=== PATIENT | female | born 1955 | race Caucasian/White ===

== ENCOUNTER → 2020-03-25 14:52 | Outpatient (CLI) | payer MEDICARE, OTHER, SELFPAY ==
--- NOTE | 2020-03-25 14:56 | DI.RAD.S_ITS ---
PROCEDURE: XR HAND LT MIN 3V INDICATIONS: L hand 5th metacarpal, L ulnar aspect wrist pain x 1 month TECHNIQUE: 3 views of the hand(s) acquired. COMPARISON: None. FINDINGS: Bones: No fractures or dislocations. Carpal bones are normally aligned. No suspicious bony lesions. Soft tissues: No suspicious soft tissue calcifications. IMPRESSION: No acute trauma found. Note is made of a accessory ossicle at the interspace between the distal left ulna and the pisiform bone. Dictated by: Sumeet Parra M.D. on 03/25/2020 at 15:38 Approved by: Sumeet Parra M.D. on 03/25/2020 at 15:40
--- NOTE | 2020-03-25 14:56 | DI.RAD.S_ITS ---
PROCEDURE: XR WRIST LT MIN 3V INDICATIONS: L hand 5th metacarpal, L ulnar aspect wrist pain x 1 month TECHNIQUE: 4 views of the wrist were acquired. COMPARISON: None. FINDINGS: Bones: No fractures or dislocations. No suspicious bony lesions. Apparent accessory ossicle at the distal margin of the ulna. Scaphoid view: No trauma Soft tissues: No suspicious soft tissue calcifications. IMPRESSION: No trauma found. Accessory ossicle at the interspace between the distal ulna and the pisiform bone. Dictated by: Sumeet Parra M.D. on 03/25/2020 at 15:37 Approved by: Sumeet Parra M.D. on 03/25/2020 at 15:38
== END ==
PROVIDERS: PCP Registered Nurse Diabetes Educator; Referring Provider Registered Nurse Diabetes Educator; Visit Provider Registered Nurse Diabetes Educator
DX: M25.532 Pain in left wrist (principal); M79.642 Pain in left hand
CPT/HCPCS: 73110; 73130

== ENCOUNTER → 2020-03-26 11:23 | Outpatient (CLI) | payer MEDICARE, OTHER, SELFPAY ==
[2020-03-26 12:53] LABS: Add Manual Diff / Slide Review NO; Basophils Absolute Auto 100 /uL (0-100); Basophils Percent Auto 1.2 % (0-2); Eosinophils Absolute Auto 100 /uL (0-450); Eosinophils Percent Auto 1.5 % (2-4); Hematocrit 41.6 % (36-46); Hemoglobin 13.9 g/dL (12.0-16.0); Lymphocytes Absolute Auto 1700 /uL (1100-4500); Lymphocytes Percent Auto 36.2 % (25-40); Mean Corpuscular HGB Conc 33.5 % (30-36); Mean Corpuscular Hemoglobin 30.5 PG (26-34); Mean Corpuscular Volume 91.1 fL (80-100); Monocytes Absolute Auto 600 /uL (0-900); Monocytes Percent Auto 12.1 % (3-14); Neutrophils Absolute Auto 2300 /uL (1500-7000); Platelet Count 279 X10^3/uL (150-400); Red Blood Cell Count 4.57 X10^6/uL (4.0-5.2); Red Cell Distribution Width 13.4 % (11.6-14.8); White Blood Cell Count 4.8 X10^3/uL (4.5-11.0)
[2020-03-26 13:02] LABS: Hemoglobin A1C% w Est Avg Glu 5.8 % (4.0-6.0)
[2020-03-26 13:23] LABS: Alanine Aminotransferase 22 IU/L (<35); Albumin 4.6 g/dL (3.5-5.0); Albumin Globulin Ratio 1.5 (1.0-2.8); Alkaline Phosphatase 89 U/L (38-126); Aspartate Aminotransferase 33 IU/L (14-36); BUN Creatinine Ratio 16.5 (6-22); Bilirubin Total 0.6 mg/dL (0.2-1.3); Blood Urea Nitrogen 13 mg/dL (7-17); Carbon Dioxide 30 mmol/L (22-32); Chloride 101 mmol/L (98-107); Cholesterol 248 mg/dL (140-199); Estimated Glomerular Filt Rate > 60.0 mL/min (>60); Globulin 3.1 g/dL (1.7-4.1); Glucose 93 mg/dL (80-110); HDL Cholesterol 61 mg/dL (40-60); HEMOLYSIS < 15 (0-50); LDL Cholesterol Calculated 161 mg/dL (<100); Sodium 138 mmol/L (137-145); Total Protein 7.7 g/dL (6.3-8.2); Triglycerides 132 mg/dL (35-150)
[2020-03-26 13:46] LABS: TSH w/ Reflex to FT4 0.46 uIU/mL (0.47-4.68)
[2020-03-26 14:10] LABS: Free T4, Direct Thyroxine 1.12 ng/dL (0.78-2.19)
== END ==
PROVIDERS: PCP Registered Nurse Diabetes Educator; Referring Provider Registered Nurse Diabetes Educator; Visit Provider Registered Nurse Diabetes Educator
DX: E03.9 Hypothyroidism, unspecified (principal); E78.5 Hyperlipidemia, unspecified; R73.9 Hyperglycemia, unspecified
CPT/HCPCS: 36415; 80053; 80061; 83036; 84439; 84443; 85025

== ENCOUNTER → 2020-07-28 17:20 | Outpatient (CLI) | payer MEDICARE, OTHER, SELFPAY ==
--- NOTE | 2020-07-28 17:23 | DI.MG.S_ITS ---
BILATERAL DIGITAL SCREENING MAMMOGRAM 3D/2D WITH CAD: 07/28/2020 CLINICAL: Routine screening. Comparison is made to exams dated: 06/08/2017 mammogram, 06/20/2017 mammogram, 07/03/2018 mammogram, and 07/04/2019 mammogram - outside location. There are scattered fibroglandular elements in both breasts. Current study was also evaluated with a Computer Aided Detection (CAD) system. There are benign vascular calcifications in the right breast. No significant masses, calcifications, or other findings are seen in either breast. There has been no significant interval change. IMPRESSION: BENIGN There is no mammographic evidence of malignancy. A 1 year screening mammogram is recommended. This exam was interpreted at Station ID: [id number]. NOTE: For mammograms, a report in lay terms will be sent to the patient. Approximately 15% of breast malignancies will not be visualized mammographically. In the management of a palpable breast mass, a negative mammogram must not discourage biopsy of a clinically suspicious lesion. Electronically Signed By: Terry carmichael/maritza:07/29/2020 08:05:26 letter sent: Normal Exam ACR BI-RADS Category 2: Benign Finding(s) 3342F
== END ==
PROVIDERS: PCP Registered Nurse Diabetes Educator; Referring Provider Registered Nurse Diabetes Educator; Visit Provider Registered Nurse Diabetes Educator
DX: Z12.31 Encounter for screening mammogram for malignant neoplasm of breast (principal)
CPT/HCPCS: 77063; 77067

== ENCOUNTER → 2020-07-30 11:01 | Outpatient (CLI) | payer MEDICARE, OTHER, SELFPAY ==
[2020-07-30 13:46] LABS: TSH w/ Reflex to FT4 3.78 uIU/mL (0.47-4.68)
== END ==
PROVIDERS: PCP Registered Nurse Diabetes Educator; Referring Provider Registered Nurse Diabetes Educator; Visit Provider Registered Nurse Diabetes Educator
DX: E03.9 Hypothyroidism, unspecified (principal)
CPT/HCPCS: 36415; 84443

== ENCOUNTER → 2020-12-31 12:16 | Outpatient (CLI) | payer MEDICARE, OTHER, SELFPAY ==
--- NOTE | 2020-12-31 12:17 | DI.RAD.S_ITS ---
PROCEDURE: XR KNEE LT 3V INDICATIONS: Left knee pain, atraumatic TECHNIQUE: 3 views of the knee were acquired. COMPARISON: None. FINDINGS: Bones: No fractures or dislocations. No suspicious bony lesions. Mild tricompartmental knee joint degeneration. Soft tissues: Small joint effusion. No suspicious soft tissue calcifications. IMPRESSION: Mild tricompartmental degenerative joint disease and small knee joint effusion. Dictated by: Sarah Aguilar M.D. on 12/31/2020 at 17:22 Approved by: Sarah Aguilar M.D. on 12/31/2020 at 17:23
== END ==
PROVIDERS: PCP Registered Nurse Diabetes Educator; Referring Provider Registered Nurse Diabetes Educator; Visit Provider Registered Nurse Diabetes Educator
DX: M25.562 Pain in left knee (principal); M17.12 Unilateral primary osteoarthritis, left knee; M25.462 Effusion, left knee
CPT/HCPCS: 73562

== ENCOUNTER → 2021-09-08 16:03 | Outpatient (CLI) | payer MEDICARE, OTHER, SELFPAY ==
--- NOTE | 2021-09-08 16:05 | DI.MG.S_ITS ---
BILATERAL DIGITAL SCREENING MAMMOGRAM 3D/2D WITH CAD: 09/08/2021 CLINICAL: Routine screening. Comparison is made to exams dated: 07/28/2020 mammogram - [facility], 07/04/2019 mammogram, and 07/03/2018 mammogram - outside location. There are scattered fibroglandular elements in both breasts. Current study was also evaluated with a Computer Aided Detection (CAD) system. There are benign vascular calcifications in the right breast. No significant masses, calcifications, or other findings are seen in either breast. There has been no significant interval change. IMPRESSION: BENIGN There is no mammographic evidence of malignancy. A 1 year screening mammogram is recommended. This exam was interpreted at Station ID: [id number]. NOTE: For mammograms, a report in lay terms will be sent to the patient. Approximately 15% of breast malignancies will not be visualized mammographically. In the management of a palpable breast mass, a negative mammogram must not discourage biopsy of a clinically suspicious lesion. Electronically Signed By: Renzo Rivas M.D., jr/maritza:09/09/2021 09:22:39 letter sent: Normal Exam ACR BI-RADS Category 2: Benign Finding(s) 3342F
== END ==
PROVIDERS: PCP Registered Nurse Diabetes Educator; Referring Provider Registered Nurse Diabetes Educator; Visit Provider Registered Nurse Diabetes Educator
DX: Z12.31 Encounter for screening mammogram for malignant neoplasm of breast (principal)
CPT/HCPCS: 77063; 77067

== ENCOUNTER → 2021-09-28 13:00 | Outpatient (CLI) | payer MEDICARE, OTHER, SELFPAY ==
[2021-09-28 15:50] LABS: TSH w/ Reflex to FT4 2.55 uIU/mL (0.47-4.68)
== END ==
PROVIDERS: PCP Registered Nurse Diabetes Educator; Referring Provider Registered Nurse Diabetes Educator; Visit Provider Registered Nurse Diabetes Educator
DX: E03.9 Hypothyroidism, unspecified (principal)
CPT/HCPCS: 36415; 84443

== ENCOUNTER → 2021-10-20 10:55 | Outpatient (CLI) | payer MEDICARE, OTHER, SELFPAY | PROVIDERS: PCP Registered Nurse Diabetes Educator; Referring Provider Registered Nurse Diabetes Educator; Visit Provider Registered Nurse Diabetes Educator | DX: M81.0 Age-related osteoporosis without current pathological fracture (principal); Z13.820 Encounter for screening for osteoporosis; Z78.0 Asymptomatic menopausal state | CPT/HCPCS: 77080 ==

== ENCOUNTER → 2021-11-29 13:54 | Outpatient (CLI) | payer MEDICARE, OTHER, SELFPAY ==
[2021-11-29 14:45] LABS: COVID19 -Nasal RAPID Negative (Negative)
== END ==
PROVIDERS: PCP Registered Nurse Diabetes Educator; Visit Provider Nurse Practitioner Family
DX: Z20.822 Contact with and (suspected) exposure to COVID-19 (principal)
CPT/HCPCS: 87635

== ENCOUNTER → 2021-12-09 12:15 | Outpatient (CLI) | payer MEDICARE, OTHER, SELFPAY ==
[2021-12-09 14:16] LABS: Alanine Aminotransferase 22 IU/L (<35); Albumin 4.5 g/dL (3.5-5.0); Albumin Globulin Ratio 1.5 (1.0-2.8); Alkaline Phosphatase 67 U/L (38-126); Aspartate Aminotransferase 32 IU/L (14-36); BUN Creatinine Ratio 16.5 (6-22); Bilirubin Total 0.4 mg/dL (0.2-1.3); Blood Urea Nitrogen 14 mg/dL (7-17); Calcium 9.3 mg/dL (8.4-10.2); Carbon Dioxide 30 mmol/L (22-32); Chloride 99 mmol/L (98-107); Estimated Glomerular Filt Rate > 60 mL/min (>60); Globulin 3.1 g/dL (1.7-4.1); Glucose 79 mg/dL (80-110); HEMOLYSIS < 15 (0-50); Potassium 4.1 mmol/L (3.4-5.1); Sodium 136 mmol/L (137-145); Total Protein 7.6 g/dL (6.3-8.2)
[2021-12-09 16:48] LABS: Vitamin D 25 Hydroxy (D3) 49.7 ng/mL (30.0-100.0)
== END ==
PROVIDERS: PCP Registered Nurse Diabetes Educator; Referring Provider Registered Nurse Diabetes Educator; Visit Provider Registered Nurse Diabetes Educator
DX: M81.0 Age-related osteoporosis without current pathological fracture (principal)
CPT/HCPCS: 36415; 80053; 82306

== ENCOUNTER → 2022-08-17 10:50 | Outpatient (CLI) | payer MEDICARE, OTHER, SELFPAY ==
[2022-08-17 11:22] LABS: Add Manual Diff / Slide Review NO; Basophils Absolute Auto 0 /uL (0-100); Basophils Percent Auto 0.8 % (0-2); Eosinophils Absolute Auto 100 /uL (0-450); Hematocrit 41.7 % (36-46); Lymphocytes Absolute Auto 1900 /uL (1100-4500); Lymphocytes Percent Auto 33.4 % (25-40); Mean Corpuscular HGB Conc 33.6 % (30-36); Mean Corpuscular Hemoglobin 30.3 PG (26-34); Mean Corpuscular Volume 90.2 fL (80-100); Monocytes Absolute Auto 600 /uL (0-900); Monocytes Percent Auto 10.9 % (3-14); Neutrophils Absolute Auto 3000 /uL (1500-7000); Neutrophils Percent Auto 52.9 % (50-75); Platelet Count 285 X10^3/uL (150-400); Red Blood Cell Count 4.62 X10^6/uL (4.0-5.2); Red Cell Distribution Width 13.3 % (11.6-14.8); White Blood Cell Count 5.8 X10^3/uL (4.5-11.0)
[2022-08-17 11:32] LABS: Hemoglobin A1C% w Est Avg Glu 5.8 % (4.0-6.0)
[2022-08-17 11:41] LABS: Albumin 4.5 g/dL (3.5-5.0); Bilirubin Total 0.5 mg/dL (0.2-1.3); Chloride 100 mmol/L (98-107); Estimated Glomerular Filt Rate > 60 mL/min (>60); HEMOLYSIS < 15 (0-50); Potassium 4.7 mmol/L (3.4-5.1); Sodium 139 mmol/L (137-145)
[2022-08-17 11:56] LABS: Alanine Aminotransferase 24 IU/L (<35); Albumin Globulin Ratio 1.2 (1.0-2.8); Alkaline Phosphatase 61 U/L (38-126); Aspartate Aminotransferase 32 IU/L (14-36); BUN Creatinine Ratio 19.5 (6-22); Blood Urea Nitrogen 15 mg/dL (7-17); Calcium 9.6 mg/dL (8.4-10.2); Carbon Dioxide 28 mmol/L (22-32); Globulin 3.7 g/dL (1.7-4.1); Glucose 91 mg/dL (80-110); Total Protein 8.2 g/dL (6.3-8.2)
[2022-08-17 12:09] LABS: TSH w/ Reflex to FT4 3.14 uIU/mL (0.47-4.68)
== END ==
PROVIDERS: PCP Registered Nurse Diabetes Educator; Referring Provider Registered Nurse Diabetes Educator; Visit Provider Registered Nurse Diabetes Educator
DX: R35.0 Frequency of micturition (principal); R53.83 Other fatigue
CPT/HCPCS: 36415; 80053; 83036; 84443; 85025

== ENCOUNTER → 2022-08-31 16:15 | Outpatient (CLI) | payer MEDICARE, OTHER, SELFPAY ==
--- NOTE | 2022-08-31 16:17 | DI.US.S_ITS ---
PROCEDURE: US RENAL COMPLETE INDICATIONS: Post Void Risidual TECHNIQUE: Real-time scanning was performed of the kidneys and bladder, with image documentation. COMPARISON: None. FINDINGS: Kidneys: Kidneys are normal in size. Right kidney measures 9.4 cm long; left kidney measures 9.5 cm long. Right renal cortical thickness is 0.7 cm; left renal cortical thickness is 0.8 cm. Renal cortical echotexture is normal. No hydronephrosis or nephrolithiasis. No suspicious solid mass lesions. Bladder: Pre-void bladder volume is 337.9 mL. Post-void residual is 21.4 mL. Pre-void images demonstrate no intraluminal masses or stones. On pre-void images, bilateral ureteral jets are noted with color Doppler interrogation. (Of note, ureteral jets may not be detectable in up to 25% of cases due to insufficient differences in specific gravity between ureteral and bladder urine). Miscellaneous: No free pelvic fluid. IMPRESSION: No hydronephrosis. Mild postvoid residual. Bilateral cortical thinning. Dictated by: Isela Pop M.D. on 08/31/2022 at 18:10 Approved by: Isela Pop M.D. on 08/31/2022 at 18:11
== END ==
PROVIDERS: PCP Registered Nurse Diabetes Educator; Referring Provider Registered Nurse Diabetes Educator; Visit Provider Registered Nurse Diabetes Educator
DX: R33.9 Retention of urine, unspecified (principal)
CPT/HCPCS: 76770

== ENCOUNTER → 2023-01-16 11:47 | Outpatient (CLI) | payer MEDICARE, OTHER, SELFPAY ==
--- NOTE | 2023-01-16 11:49 | DI.RAD.S_ITS ---
PROCEDURE: XR HAND RT MIN 3V INDICATIONS: pain 1st mcp joint TECHNIQUE: 4 views of the hand(s) acquired. COMPARISON: [facility], CR, XR HAND LT MIN 3V, 03/25/2020, 14:50. FINDINGS: Bones: No fractures or dislocations. Osteoarthritic changes are noted throughout right hand and wrist joints more notably involving 1st CMC joint, 1st MCP joint and interphalangeal joint. No gross bony erosive changes are noted. Carpal bones are normally aligned. No suspicious bony lesions. Soft tissues: No suspicious soft tissue calcifications. IMPRESSION: Osteoarthritic changes noted throughout right hand and wrist joints most notably in right thumb as above. No fracture or dislocation. Dictated by: Tristin Henriquez M.D. on 01/16/2023 at 12:41 Approved by: Tristin Henriquez M.D. on 01/16/2023 at 12:42
== END ==
PROVIDERS: PCP Registered Nurse Diabetes Educator; Referring Provider Family Medicine; Visit Provider Family Medicine
DX: M65.4 Radial styloid tenosynovitis [de Quervain] (principal); M79.641 Pain in right hand
CPT/HCPCS: 73130

== ENCOUNTER → 2023-06-08 12:09 | Outpatient (CLI) | payer MEDICARE, OTHER, SELFPAY ==
--- NOTE | 2023-06-08 12:10 | DI.RAD.S_ITS ---
PROCEDURE: XR FOOT LT MIN 3V INDICATIONS: Left foot contusion TECHNIQUE: 3 views of the foot were acquired. COMPARISON: None. FINDINGS: Bones: Mildly displaced, comminuted fracture of the distal 5th metatarsal. [id number]-hl-[id number] 1st MTP joint osteoarthritis. Soft tissues: No tibiotalar joint effusion. Achilles tendon appears normal. IMPRESSION: Fifth metatarsal fracture. Dictated by: Svitlana Rossi MD, PhD on 06/08/2023 at 14:47 Approved by: Svitlana Rossi MD, PhD on 06/08/2023 at 14:47
== END ==
PROVIDERS: PCP Registered Nurse Diabetes Educator; Referring Provider Nurse Practitioner Family; Visit Provider Nurse Practitioner Family
DX: S92.352A Displaced fracture of fifth metatarsal bone, left foot, initial encounter for closed fracture (principal); S90.32XA Contusion of left foot, initial encounter; X58.XXXA Exposure to other specified factors, initial encounter
CPT/HCPCS: 73630

== ENCOUNTER → 2023-07-05 12:52 | Outpatient (CLI) | payer MEDICARE, OTHER, SELFPAY ==
--- NOTE | 2023-07-05 12:54 | DI.RAD.S_ITS ---
Bone Density Report Name: BOBO RÍOS Age: 67 Sex: Female Ethnicity: White Date of : 1955 Indication: osteopenia; monitoring treatment; Referring Provider: VERITO CANNON Study: Bone densitometry was performed. Exam Date: July 05, 2023 Accession number: [id number] Bone Density: Region BMD T-score Z-score Classification AP Spine(L1-L4) 0.845 -1.8 0.2 Osteopenia Femoral Neck (Left) 0.713 -1.2 0.5 Osteopenia Total Hip (Left) 0.793 -1.2 0.2 Osteopenia Femoral Neck (Right) 0.634 -1.9 -0.2 Osteopenia Total Hip (Right) 0.808 -1.1 0.3 Osteopenia Total Hip Mean 0.800 -1.2 0.3 Osteopenia World Health Organization criteria for BMD impression classify patients as: Normal (T-score at or above -1.0), Osteopenia (T-score between -1.0 and -2.5), or Osteoporosis (T-score at or below -2.5). 10-year Fracture Risk: FRAX not reported because: Treated for osteoporosis Previous Exams: -- Region Exam Age BMD T-score BMD Change BMD Change Date g/cm2 vs Baseline vs Previous -- AP Spine (L1-L4) 07/05/2023 67 0.845 -1.8 0.038 (4.7%)* 0.038 (4.7%)* 10/20/2021 65 0.806 -2.2 Total Hip(Left) 07/05/2023 67 0.793 -1.2 0.016 (2.0%) 0.016 (2.0%) 10/20/2021 65 0.777 -1.4 Total Hip(Right) 07/05/2023 67 0.808 -1.1 0.069 (9.4%)* 0.069 (9.4%)* 10/20/2021 65 0.739 -1.7 -- *Denotes significance at 95% confidence level, LSC for AP Spine = 0.022 g/cm2, LSC for Total Hip = 0.027 g/cm2 Impression: The patient has low bone mass, based on the Right Femoral Neck T-score. No significant bone loss was observed. Discussion: PATIENT UNDER TREATMENT WITH NO SIGNIFICANT BMD LOSS SINCE LAST EXAM. In an untreated patient, BMD typically declines with age. A lack of decline or gain is usually a sign that treatment is efficacious and fracture risk is reduced. It is important to ask patients whether they are taking their medications and to encourage continued and appropriate compliance with their osteoporosis therapies to reduce fracture risk. It is also important to review their risk factors and encourage appropriate calcium and vitamin D intakes, exercise, fall prevention and other lifestyle measures. Follow-Up: Consider a repeat BMD and Vertebral Fracture Assessment (VFA) exam in 2 years or sooner if medically necessary, to reassess this patient's status. Reported by: JAZZ SUAREZ M.D. on 07/05/2023 1:25:00 PM.
--- NOTE | 2023-07-05 12:54 | DI.MG.S_ITS ---
BILATERAL DIGITAL SCREENING MAMMOGRAM 3D/2D WITH CAD: 07/05/2023 CLINICAL: Routine screening. Comparison is made to exams dated: 09/08/2021 mammogram, 07/28/2020 mammogram - [facility], and 07/04/2019 mammogram - outside location. There are scattered areas of fibroglandular density in both breasts (category b / 25%-50% glandular tissue). Current study was also evaluated with a Computer Aided Detection (CAD) system. There are benign vascular calcifications in the right breast. No significant masses, calcifications, or other findings are seen in either breast. There has been no significant interval change. IMPRESSION: BENIGN There is no mammographic evidence of malignancy. A 1 year screening mammogram is recommended. Based on the Tyrer Cuzick model (a risk assessment model) the patient's lifetime risk is 3.8% and her 10 year risk is 2.1%. According to the ACR, ACS, and NCCN guidelines, an annual breast MRI exam along with mammogram is recommended if the patient's lifetime risk is 20% or greater. This exam was interpreted at Station ID: [id number]. NOTE: For mammograms, a report in lay terms will be sent to the patient. Approximately 15% of breast malignancies will not be visualized mammographically. In the management of a palpable breast mass, a negative mammogram must not discourage biopsy of a clinically suspicious lesion. Electronically Signed By: Melia barahona/maritza:07/05/2023 16:12:23 letter sent: Normal Exam ACR BI-RADS Category 2: Benign Finding(s) 3342F
== END ==
PROVIDERS: PCP Registered Nurse Diabetes Educator; Referring Provider Registered Nurse Diabetes Educator; Visit Provider Registered Nurse Diabetes Educator
DX: M81.0 Age-related osteoporosis without current pathological fracture (principal); Z12.31 Encounter for screening mammogram for malignant neoplasm of breast; Z78.0 Asymptomatic menopausal state; Z79.83 Long term (current) use of bisphosphonates
CPT/HCPCS: 77063; 77067; 77080

== ENCOUNTER → 2023-07-19 08:08 | Outpatient (CLI) | payer MEDICARE, OTHER, SELFPAY ==
--- NOTE | 2023-07-19 08:10 | DI.RAD.S_ITS ---
PROCEDURE: XR KNEE RT 3V INDICATIONS: Fall on right knee TECHNIQUE: 3 views of the knee were acquired. COMPARISON: [facility], CR, XR KNEE LT 3V, 12/31/2020, 12:17. FINDINGS: Bones: No fractures or dislocations. No suspicious bony lesions. Soft tissues: Small to moderate joint effusion. No suspicious soft tissue calcifications. IMPRESSION: No acute osseous abnormality. Small to moderate knee joint effusion. If pain persists with conservative management, consider repeat x-ray in 10-14 days or cross-sectional imaging. Dictated by: Dyllan Torres M.D. on 07/19/2023 at 10:36 Approved by: Dyllan Torres M.D. on 07/19/2023 at 10:40
== END ==
PROVIDERS: PCP Registered Nurse Diabetes Educator; Referring Provider Nurse Practitioner Family; Visit Provider Nurse Practitioner Family
DX: S86.911A Strain of unspecified muscle(s) and tendon(s) at lower leg level, right leg, initial encounter (principal); M25.461 Effusion, right knee
CPT/HCPCS: 73562

== ENCOUNTER → 2023-08-15 08:34 | Outpatient (CLI) | payer MEDICARE, OTHER, SELFPAY ==
[2023-08-15 10:06] LABS: Alanine Aminotransferase 19 IU/L (<35); Albumin 4.4 g/dL (3.5-5.0); Albumin Globulin Ratio 1.4 (1.0-2.8); Alkaline Phosphatase 45 U/L (38-126); Aspartate Aminotransferase 35 IU/L (14-36); Bilirubin Total 0.7 mg/dL (0.2-1.3); Blood Urea Nitrogen 19 mg/dL (7-17); Calcium 9.8 mg/dL (8.4-10.2); Carbon Dioxide 27 mmol/L (22-32); Chloride 99 mmol/L (98-107); Cholesterol 247 mg/dL (140-199); Estimated Glomerular Filt Rate > 60 mL/min (>60); Globulin 3.2 g/dL (1.7-4.1); Glucose 91 mg/dL (80-110); HDL Cholesterol 50 mg/dL (40-60); HEMOLYSIS < 15 (0-50); LDL Cholesterol Calculated 175 mg/dL (<100); Potassium 4.8 mmol/L (3.4-5.1); Sodium 136 mmol/L (137-145); Total Protein 7.6 g/dL (6.3-8.2); Triglycerides 112 mg/dL (35-150)
[2023-08-15 10:46] LABS: TSH w/ Reflex to FT4 3.72 uIU/mL (0.47-4.68)
[2023-08-15 12:34] LABS: Hemoglobin A1C% w Est Avg Glu 5.9 % (4.0-6.0)
== END ==
PROVIDERS: PCP Registered Nurse Diabetes Educator; Referring Provider Registered Nurse Diabetes Educator; Visit Provider Registered Nurse Diabetes Educator
DX: R73.03 Prediabetes (principal); E03.9 Hypothyroidism, unspecified; E78.5 Hyperlipidemia, unspecified
CPT/HCPCS: 36415; 80053; 80061; 83036; 84443

== ENCOUNTER → 2023-10-31 10:04 | Outpatient (CLI) | payer MEDICARE, OTHER, SELFPAY ==
--- NOTE | 2023-10-31 10:06 | DI.RAD.S_ITS ---
PROCEDURE: XR KNEE RT 3V INDICATIONS: pain medial R knee; instability suspect OA TECHNIQUE: 3 views of the knee were acquired. COMPARISON: [facility], CR, XR KNEE RT 3V, 07/19/2023, 8:12. [facility], CR, XR KNEE LT 3V, 12/31/2020, 12:17. FINDINGS: Bones: No fractures or dislocations. No suspicious bony lesions. Tricompartmental joint space narrowing with associated osteophytosis. Soft tissues: No joint effusion. No suspicious soft tissue calcifications. IMPRESSION: [id number]-[id number] tricompartmental osteoarthritis. Kellgren-Casimiro Grade 2. No significant change since 07/19/2023. Dictated by: Mayur Anand M.D. on 10/31/2023 at 13:11 Approved by: Mayur Anand M.D. on 10/31/2023 at 13:12
== END ==
PROVIDERS: PCP Registered Nurse Diabetes Educator; Referring Provider Physician Assistant; Visit Provider Physician Assistant
DX: M17.11 Unilateral primary osteoarthritis, right knee (principal); M25.561 Pain in right knee
CPT/HCPCS: 73562

== ENCOUNTER → 2023-11-05 11:14 | Outpatient (CLI) | payer MEDICARE, OTHER, SELFPAY ==
--- NOTE | 2023-11-05 11:16 | DI.MRI.S_ITS ---
PROCEDURE: MR KNEE RT WO CON INDICATIONS: Instability R knee; R knee pain medial side TECHNIQUE: Noncontrast sagittal PD fast spin echo and T2 fast spin echo with fat saturation, sagittal 3-D FLASH with fat saturation; coronal T1 spin echo and PD fast spin echo with fat saturation, and axial PD fast spin echo with fat saturation through the knee. COMPARISON: None. FINDINGS: Image quality: Excellent. Menisci: There is peripheral displacement of medial meniscus bowing medial collateral ligament. Subtle oblique tear involving posterior horn medial meniscus is likely present extending to superior articulating surface. The lateral meniscus is intact. The meniscal root ligaments appear intact. Cruciate ligaments: The anterior and posterior cruciate ligaments appear intact. Medial structures: The medial collateral ligament appears mildly thickened. Visualized portions of the pes anserinus tendons appear normal. No abnormal bursal fluid. Lateral structures: The lateral collateral ligament, long and short heads of the biceps femoris tendon appear intact. The popliteus tendon appears thickened with surrounding soft tissue edema. Iliotibial band appears normal. Anterior structures: The quadriceps and patellar tendons appear intact. Patellar alignment is normal. No femoral trochlear dysplasia or ventral trochlear prominence. No edema in the infrapatellar fat pad. Bones and cartilage: Drsz-qm-lptydouw tricompartmental osteoarthritis and chondromalacia is seen more notably in medial femoral tibial compartment. No fracture or dislocation. Joint space: There is small to moderate knee joint fluid. No Carreon's cyst. Normal appearing synovial plicae are incidentally noted. IMPRESSION: 1. Suggestion of subtle oblique tear involving posterior horn of medial meniscus extending to superior articulating surface. The lateral meniscus is intact. 2. The cruciate ligaments are intact. Very low-grade proximal MCL sprain near its femoral insertion. 3. Iiez-kq-bhlblkwa tricompartmental osteoarthritis and chondromalacia most notably in medial femoral tibial compartment. No fracture or dislocation. Small to moderate joint effusion, no gross loose bodies. 4. Suggestion of low-grade partial-thickness tear involving popliteus tendon extending to musculotendinous junction with surrounding fluid. Dictated by: Tristin Henriquez M.D. on 11/06/2023 at 10:35 Approved by: Tristin Henriquez M.D. on 11/06/2023 at 10:48
== END ==
LOC: MRI 11:15
PROVIDERS: PCP Registered Nurse Diabetes Educator; Referring Provider Physician Assistant; Visit Provider Physician Assistant
DX: M23.91 Unspecified internal derangement of right knee (principal); M17.11 Unilateral primary osteoarthritis, right knee; M25.561 Pain in right knee; M94.261 Chondromalacia, right knee; M25.461 Effusion, right knee
CPT/HCPCS: 73721

== ENCOUNTER → 2024-03-22 09:47 | Outpatient (CLI) | payer MEDICARE, OTHER, SELFPAY ==
--- NOTE | 2024-03-22 10:22 | EKG_ITS ---
[address] [address] Test Date: 2024-03-22 Pat Name: Virginia Ellis Department: [facility] Room: Gender: Female Therapy Technician: JUS : 1955 Requested By: Order Number: [id number] Reading MD: Rodolfo Ravi Measurements Intervals [place] Rate: 71 P: 48 SC: 146 QRS: -5 QRSD: 86 T: 26 QT: 402 QTc: 436 Interpretive Statements Normal sinus rhythm Low voltage QRS Electronically Signed On 03-22-2024 20:14:17 PDT by Rodolfo Ravi
[2024-03-22 12:37] LABS: Add Manual Diff / Slide Review NO; Basophils Absolute Auto 0 /uL (0-100); Basophils Percent Auto 0.8 % (0-2); Eosinophils Absolute Auto 100 /uL (0-450); Eosinophils Percent Auto 2.4 % (2-4); Hematocrit 38.6 % (36-46); Lymphocytes Absolute Auto 1700 /uL (1100-4500); Lymphocytes Percent Auto 34.8 % (25-40); Mean Corpuscular HGB Conc 33.7 % (30-36); Mean Corpuscular Volume 91.9 fL (80-100); Monocytes Absolute Auto 700 /uL (0-900); Monocytes Percent Auto 13.2 % (3-14); Neutrophils Absolute Auto 2400 /uL (1500-7000); Neutrophils Percent Auto 48.8 % (50-75); Platelet Count 262 X10^3/uL (150-400); Red Cell Distribution Width 13.4 % (11.6-14.8); White Blood Cell Count 4.9 X10^3/uL (4.5-11.0)
[2024-03-22 15:21] LABS: Vitamin D 25 Hydroxy (D3) 46.3 ng/mL (30.0-100.0)
[2024-03-22 16:25] LABS: Hemoglobin A1C% w Est Avg Glu 5.5 % (4.0-6.0)
[2024-03-22 16:26] LABS: Albumin 4.3 g/dL (3.5-5.0); BUN Creatinine Ratio 18.8 (6-22); Blood Urea Nitrogen 15 mg/dL (7-17); Calcium 9.4 mg/dL (8.4-10.2); Carbon Dioxide 23 mmol/L (22-32); Chloride 103 mmol/L (98-107); Estimated Glomerular Filt Rate > 60 mL/min (>60); Glucose 79 mg/dL (80-110); HEMOLYSIS < 15 (0-50); Potassium 4.7 mmol/L (3.4-5.1); Sodium 136 mmol/L (137-145)
[2024-03-22 16:34] LABS: Prealbumin 26.2 mg/dL (17.6-36.0)
== END ==
PROVIDERS: PCP Registered Nurse Diabetes Educator; Referring Provider Orthopaedic Surgery Adult Reconstructive Orthopaedic Surgery; Visit Provider Orthopaedic Surgery Adult Reconstructive Orthopaedic Surgery
DX: Z01.818 Encounter for other preprocedural examination (principal); R73.9 Hyperglycemia, unspecified; E55.9 Vitamin D deficiency, unspecified; R77.0 Abnormality of albumin; Z01.812 Encounter for preprocedural laboratory examination
CPT/HCPCS: 36415; 80048; 82040; 82306; 83036; 84134; 85025; 93005

== ENCOUNTER → 2024-04-02 11:49 | Outpatient (CLI) | payer MEDICARE, OTHER, SELFPAY ==
[2024-04-02 13:38] LABS: TSH w/ Reflex to FT4 3.64 uIU/mL (0.47-4.68)
== END ==
PROVIDERS: PCP Registered Nurse Diabetes Educator; Referring Provider Registered Nurse Diabetes Educator; Visit Provider Registered Nurse Diabetes Educator
DX: E03.9 Hypothyroidism, unspecified (principal)
CPT/HCPCS: 36415; 84443

== ENCOUNTER 2024-07-13 15:00 | Emergency (ER) | payer MEDICARE, OTHER, SELFPAY ==
[2024-07-13 15:13] VITALS: BP 120/68; PULSE 86; RESP 15; TEMP 36.9; O2SAT 98; BMI 25.9
--- NOTE | 2024-07-13 15:19 | DI.RAD.S_ITS ---
PROCEDURE: XR KNEE RT 3V INDICATIONS: pain/swelling TECHNIQUE: 3 views of the knee were acquired. COMPARISON: [facility], CR, XR KNEE RT 3V, 10/31/2023, 10:07. [facility], CR, XR KNEE 4+ VIEWS RIGHT, 05/03/2024, 15:08. FINDINGS: Bones: Medial juancarlos arthroplasty hardware is seen, without findings of failure or loosening. No fractures or dislocations. No suspicious bony lesions. On the sunrise view, there is wdsd-mx-oyxqlpgl lateral patellofemoral joint space narrowing seen. Osteophyte formation can be seen along the margins of the patella. Soft tissues: There is a moderate to large joint effusion. No suspicious soft tissue calcifications. IMPRESSION: Unremarkable medial arthroplasty hardware. Moderate to large joint effusion. Dictated by: Aron Woodson M.D. on 07/13/2024 at 15:02 Approved by: Aron Woodson M.D. on 07/13/2024 at 15:03
--- NOTE | 2024-07-13 15:51 | ED.EXTPRO ---
HPI - Extremity Problem <Andie Grady PA-C - Last Filed: 07/13/24 17:35> General Chief complaint: Extremity Problem,Nontraumatic Stated complaint: WIC; Swelling, Pain R Knee Time Seen by Provider: 07/13/24 15:51 Source: patient Mode of arrival: Ambulatory History of Present Illness HPI Narrative: Ms. Ellis is a very pleasant 68-year-old female with a past medical history of osteoarthritis s/p right knee medial juancarlos arthroplasty 04/23/[address] Sylvester Saucedo [facility] who presents to the emergency department for right knee pain and swelling x 1 week. Patient states since her knee surgery she has been having a good recovery and going to physical therapy. States without any injury or inciting event about 1 week ago she developed increased pain and swelling of the right knee. Describes pain as a ?swollen vein? in the medial side of the knee. She is concerned for possible blood clot. No history of VTE or recent travel. No blood thinner use or history of bleeds. She takes Celebrex at night for the pain. Denies thigh or calf pain but does feel as though the lower leg is swollen as well. Denies increased redness or warmth of the knee, fevers chills, flu-like symptoms, nausea, vomiting, chest pain, shortness of breath. Related Data Home Medications Medication Instructions Recorded Confirmed antiox.mv no.[id number] PO 03/25/20 04/09/24 cholecalciferol (vitamin D3) 25 25 mcg PO DAILY 03/25/20 04/09/24 mcg (1,000 unit) capsule loratadine-pseudoephedrine ER 10 1 tab PO DAILY Seasonal allergies 12/27/23 04/09/24 mg-240 mg tablet,extended [id number] (AllerClear D-24hr) celecoxib 200 mg capsule 200 mg PO DAILY Arthritis and 02/07/24 04/09/24 meniscus tear levothyroxine 50 mcg tablet 50 mcg PO DAILY 04/02/24 04/09/24 Previous Rx's Medication Instructions Recorded alendronate 70 mg tablet (Fosamax) 70 mg PO QWEEK #12 tabs 08/22/23 duloxetine 20 mg capsule,delayed 40 mg (2 x 20 mg) PO DAILY #180 08/22/23 release caps tolterodine 2 mg capsule,extended 2 mg PO DAILY #90 caps 04/01/24 release 24 hr Allergies Allergy/AdvReac Type Severity Reaction Status Date / Time No Known Drug Allergies Allergy Verified 04/09/24 15:01 Review of Systems <Andie Grady PA-C - Last Filed: 07/13/24 17:35> Review of Systems ROS Unobtainable: All systems reviewed & are unremarkable except as noted in HPI and below Patient History <Andie Grady PA-C - Last Filed: 07/13/24 17:35> Medical History Other low back pain Bilateral chronic knee pain Prediabetes Osteoporosis IBS (irritable bowel syndrome) Depression Hyperglycemia Dyslipidemia Sleep apnea (~2018) Depression (~1971) Shoulder pain (~1986) Osteopenia (~2012) Chronic back pain (~1986) Chicken pox Macular degeneration (~2015) Hypothyroidism (~2012) Surgical History Anesthesia History of laparoscopic cholecystectomy (~2016) History of appendectomy (~1970) History of tubal ligation (~1978) Family History Father History of heart disease Mother Congestive heart failure Social History marital status: number of children: 2 Smoking Status: Never smoker Type(s) of exercise: walking Smoking Status: Never smoker tobacco type: cigarettes Exam <Andie Grady PA-C - Last Filed: 07/13/24 17:35> Narrative Exam Narrative: GENERAL: 68 year old patient appears stated age. Well-developed patient, in no acute distress. HEAD: Atraumatic. Normocephalic. CARDIOVASCULAR: Regular rate and rhythm. RESPIRATORY: ?Nonlabored respirations. ?Speaking in clear, full sentences. ?Clear to auscultation. Breath sounds equal bilaterally. No wheezes, rales, or rhonchi. ? EXTREMITIES: Right knee with midline vertical surgical incision scar and that is healed well. No erythema or increased warmth. No rashes. Right knee is slightly more swollen and less defined compared to left knee. However but equal swelling of the bilateral lower extremity, nonpitting. Subjective tenderness to palpation of both medial and lateral joint line. Sensation intact to light touch in the bilateral lower extremities and strong DP pulses bilaterally. NEURO: AOx3. ?Clear speech. ?Moves all 4 extremities appropriately. Ambulatory with steady gait. SKIN: No rash or erythema of visible areas Initial Vital Signs Initial Vital Signs: Vital Signs Temperature 98.5 F 07/13/24 15:13 Pulse Rate 86 07/13/24 15:13 Respiratory Rate 15 07/13/24 15:13 Blood Pressure 120/68 07/13/24 15:13 Pulse Oximetry 98 07/13/24 15:13 Oxygen Delivery Method Room Air 07/13/24 15:13 <Arnie Thomas MD - Last Filed: 07/13/24 20:49> Initial Vital Signs Initial Vital Signs: Vital Signs Temperature 98.5 F 07/13/24 15:13 Pulse Rate 86 07/13/24 15:13 Respiratory Rate 15 07/13/24 15:13 Blood Pressure 120/68 07/13/24 15:13 Pulse Oximetry 98 07/13/24 15:13 Oxygen Delivery Method Room Air 07/13/24 15:13 Course <Andie Grady PA-C - Last Filed: 07/13/24 17:35> Orders Ordered: ED Orders 07/13/24 15:19 XR knee RT 3V Stat 07/13/24 16:00 US periph venous low extrem rt Stat Vital Signs Vital signs: Vital Signs - 8 hr 07/13/24 15:13 07/13/24 17:58 Temperature 98.5 F Pulse Rate 86 82 Respiratory Rate 15 16 Blood Pressure 120/68 117/67 Pulse Oximetry 98 99 Oxygen Delivery Method Room Air Room Air <Arnie Thomas MD - Last Filed: 07/13/24 20:49> Orders Ordered: ED Orders 07/13/24 15:19 XR knee RT 3V Stat 07/13/24 16:00 US periph venous low extrem rt Stat Vital Signs Vital signs: Vital Signs - 8 hr 07/13/24 15:13 07/13/24 17:58 Temperature 98.5 F Pulse Rate 86 82 Respiratory Rate 15 16 Blood Pressure 120/68 117/67 Pulse Oximetry 98 99 Oxygen Delivery Method Room Air Room Air MDM - Extremity (Nontraumatic) <Andie Grady PA-C - Last Filed: 07/13/24 17:35> Medical Records Attestation: I reviewed the patient's medical records. Imaging Data Right Knee X-Ray: Radiologist's Impression: PROCEDURE: XR KNEE RT 3V INDICATIONS: pain/swelling TECHNIQUE: 3 views of the knee were acquired. COMPARISON: [facility], CR, XR KNEE RT 3V, 10/31/2023, 10:07. [facility] [place], CR, XR KNEE 4+ VIEWS RIGHT, 05/03/2024, 15:08. FINDINGS: Bones: Medial juancarlos arthroplasty hardware is seen, without findings of failure or loosening. No fractures or dislocations. No suspicious bony lesions. On the sunrise view, there is [id number] lateral patellofemoral joint space narrowing seen. Osteophyte formation can be seen along the margins of the patella. Soft tissues: There is a moderate to large joint effusion. No suspicious soft tissue calcifications. IMPRESSION: Unremarkable medial arthroplasty hardware. Moderate to large joint effusion. [facility] Narrative Medical decision making narrative: 68-year-old female with a past medical history of osteoarthritis s/p right knee medial juancarlos arthroplasty 04/23/[address] Sylvester Hendricks [facility] who presents to the emergency department for right knee pain and swelling x 1 week. Differential diagnosis includes but is not limited to knee effusion, arthritis, joint infection septic arthritis, DVT, joint inflammation, cellulitis, varicose veins, etc. On exam the patient is in no acute distress, nontoxic appearing, vital signs within normal limits. Right knee well-appearing surgical scar. Knee is mildly swollen with subjective medial and lateral joint tenderness but full range of motion and strength and steady gait without pain. We will obtain x-ray and ultrasound to rule out DVT. Patient declines pain medication at this time. Right knee x-ray reveals unremarkable medial arthroplasty hardware. Patient does have a moderate to large joint effusion. Right lower extremity ultrasound reveals no findings of lower extremity deep venous thrombosis. 1730: Consulted orthopedic surgeon on-call Dr. Orta. Discussed the patient's case and imaging results including moderate to large joint effusion. There are no signs of infection at this time. He recommended she call the office Monday to schedule a follow up appointment. Discussed all results with patient. We discussed signs and symptoms of infection that she should return to ER immediately for. Recommended rice therapy and anti-inflammatory/Tylenol if needed for pain. A right knee Jos wrap was placed on her knee in the emergency department. She verbalized understanding of all information and is agreeable to the plan. She is ambulatory and eager for discharge. Patient is stable for discharge at this time. Discharge Plan Departure Patient Disposition: Home Clinical Impression: Pain and swelling of right knee, Effusion of knee joint right Instructions: DI for Knee Pain Activity Restrictions/Additional Instructions: Dear Ms. Ellis, Today you were evaluated for pain and swelling of the right knee. Vascular ultrasound revealed no blood clot of the right leg. Right knee x-ray revealed a moderate to large joint effusion. I discussed with [facility] orthopedic surgeon Dr. Orta. Please call Monday morning to schedule a follow up appointment with your knee surgeon for further evaluation. You may call [facility] at [phone]. Do not take Celebrex and ibuprofen as they are in the same class of medications. Please take Ibuprofen (Motrin/Advil) or Acetaminophen (Tylenol) for pain. These are available over the counter. You may take Ibuprofen 600 mg every 8 hours with food for pain. You may also take Acetaminophen 650 mg every 4-6 hours for pain. Do not exceed 3000 mg of Tylenol a day as this can cause liver damage. Do not drink alcohol with either of these medications. Please use RICE therapy for your pain in addition to ibuprofen/acetaminophen. Rest the painful area. Ice the area of pain/swelling for at least 15 minutes, 4x a day. Compress the area of swelling using a brace, wrap, or splint if applied. Elevate the painful or swollen extremity by supporting it above the level of the heart with pillows when sitting or laying. If you develop fevers/chills, increased redness/warmth of the right knee, inability or pain with bending of the right knee, or any other concerns for infection please return to the ER immediately. Please follow up with your primary care doctor within the next 2-3 days for ER follow-up. (If you do not have a PCP you can call [phone]. ?to schedule an appointment with an [facility] Primary Care Provider) IF YOU DEVELOP ANY NEW OR WORSENING SYMPTOMS, RETURN TO THE ER! Please read the attached instructions, they highlight more specific treatments and interventions for you at home. Thank you for letting me participate in your care, Andie Grady PA-C Prescriptions: No Action AllerClear D-24hr 10-240 mg tablet extended release 24 hr 1 tab PO DAILY celecoxib 200 mg capsule 200 mg PO DAILY antiox. no.[id number] PO cholecalciferol (vitamin D3) 25 mcg (1,000 unit) capsule 25 mcg PO DAILY alendronate [Fosamax] 70 mg tablet 70 mg PO QWEEK Qty: 12 3RF duloxetine 20 mg capsule,delayed release(DR/EC) 40 mg PO DAILY Qty: 180 3RF levothyroxine 50 mcg tablet 50 mcg PO DAILY tolterodine 2 mg capsule,extended release 24hr 2 mg PO DAILY Qty: 90 0RF Referrals: Jovany Castillo ARNP [Primary Care Provider] - Stand Alone Forms: Patient Portal/API/Survey ED Sign-out <Arnie Thomas MD - Last Filed: 07/13/24 20:49> Cosign ED Attending Cosignature Attestation: I was immediately available in the department for consultation. This documentation has been reviewed and I agree with assessment and plan. Supervised by Arnie Thomas MD
--- NOTE | 2024-07-13 16:00 | DI.US.S_ITS ---
PROCEDURE: US PERIPH VENOUS LOW EXTREM RT INDICATIONS: EDEMA TECHNIQUE: Real-time imaging, as well as color and pulse Doppler interrogation, were performed of the lower extremity deep veins from the inguinal ligament to the popliteal fossa, with documentation of the visualized calf veins. COMPARISON: [facility], CR, XR KNEE RT 3V, 07/13/2024, 15:31. FINDINGS: The common femoral, femoral, popliteal, and the visualized calf veins are normally compressible, and free of intraluminal thrombus. Color and pulse Doppler demonstrate normal phasic intraluminal flow. There is normal augmentation response to distal compression maneuver. IMPRESSION: No findings of lower extremity deep venous thrombosis. Dictated by: Aron Woodson M.D. on 07/13/2024 at 16:01 Approved by: Aron Woodson M.D. on 07/13/2024 at 16:01
[2024-07-13 17:58] VITALS: BP 117/67; PULSE 82; RESP 16; O2SAT 99
== END 2024-07-13 17:58 | disposition home or self-care (01) ==
PROVIDERS: Emergency Provider Physician Assistant; PCP Registered Nurse Diabetes Educator
DX: M25.561 Pain in right knee (principal); M25.461 Effusion, right knee; Z96.651 Presence of right artificial knee joint
CPT/HCPCS: 73562; 93971; 99283

== ENCOUNTER → 2024-07-25 11:14 | Outpatient (CLI) | payer MEDICARE, OTHER, SELFPAY ==
--- NOTE | 2024-07-25 11:16 | DI.MG.S_ITS ---
BILATERAL DIGITAL SCREENING MAMMOGRAM 3D/2D WITH CAD: 07/25/2024 CLINICAL: Routine screening. Comparison is made to exams dated: 07/05/2023 mammogram, 09/08/2021 mammogram, and 07/28/2020 mammogram - [facility]. There are scattered areas of fibroglandular density (category b / 25%-50% glandular tissue). Current study was also evaluated with a Computer Aided Detection (CAD) system. There are benign vascular calcifications in the right breast. No significant masses, calcifications, or other findings are seen in either breast. There has been no significant interval change. IMPRESSION: BENIGN There is no mammographic evidence of malignancy. A 1 year screening mammogram is recommended. Based on the Tyrer Cuzick model (a risk assessment model) the patient's lifetime risk is 3.6% and her 10 year risk is 2.1%. According to the ACR, ACS, and NCCN guidelines, an annual breast MRI exam along with mammogram is recommended if the patient's lifetime risk is 20% or greater. This exam was interpreted at Station ID: [id number]. NOTE: For mammograms, a report in lay terms will be sent to the patient. Approximately 15% of breast malignancies will not be visualized mammographically. In the management of a palpable breast mass, a negative mammogram must not discourage biopsy of a clinically suspicious lesion. Electronically Signed By: Danny walker/maritza:07/25/2024 12:07:49 letter sent: Normal Exam ACR BI-RADS Category 2: Benign
== END ==
PROVIDERS: PCP Registered Nurse Diabetes Educator; Referring Provider Registered Nurse Diabetes Educator; Visit Provider Registered Nurse Diabetes Educator
DX: Z12.31 Encounter for screening mammogram for malignant neoplasm of breast (principal)
CPT/HCPCS: 77063; 77067

== ENCOUNTER → 2024-09-17 10:43 | Outpatient (CLI) | payer MEDICARE, OTHER, SELFPAY ==
[2024-09-17 11:34] LABS: Influenza A - CEPHEID Flu A POSITIVE (NEGATIVE); Influenza B - CEPHEID Flu B NEGATIVE (NEGATIVE); Respiratory Syncytial Virus Negative (Negative)
[2024-09-17 11:39] LABS: COVID-19 CEPHEID 4-PLEX PCR Negative (Negative)
== END ==
PROVIDERS: PCP Registered Nurse Diabetes Educator; Visit Provider Physician Assistant
DX: R05.1 Acute cough (principal)
CPT/HCPCS: 0241U

== ENCOUNTER → 2024-09-17 10:44 | Outpatient (CLI) | payer MEDICARE, OTHER, SELFPAY ==
--- NOTE | 2024-09-17 10:45 | DI.RAD.S_ITS ---
PROCEDURE: XR CHEST 2V INDICATIONS: cough w weakness x 4 days TECHNIQUE: 2 views of the chest were acquired. COMPARISON: None. FINDINGS: Surgical changes and devices: None. Lungs and pleura: Lungs are clear. No pleural effusions or pneumothorax. Mediastinum: Mediastinal contours are normal. Heart size is normal. Bones and chest wall: Mild levocurvature of the thoracolumbar junction with the apex at T11. No suspicious bony abnormalities. Soft tissues appear unremarkable. IMPRESSION: No acute cardiothoracic process. Dictated by: Mervin Yap M.D. on 09/17/2024 at 12:04 Approved by: Mervin Yap M.D. on 09/17/2024 at 12:05
== END ==
PROVIDERS: PCP Registered Nurse Diabetes Educator; Referring Provider Physician Assistant; Visit Provider Physician Assistant
DX: J06.9 Acute upper respiratory infection, unspecified (principal); R05.1 Acute cough
CPT/HCPCS: 0241U; 71046

== ENCOUNTER → 2025-04-03 09:30 | Outpatient (CLI) | payer MEDICARE, OTHER, SELFPAY ==
--- NOTE | 2025-04-03 09:31 | DI.US.S_ITS ---
PROCEDURE: US EXTREMELY NONVASC UPPER RT INDICATIONS: eval painful lump, ?lymph node R arm proximal to elbow TECHNIQUE: Real-time scanning was performed of the area of concern of the right arm , with image documentation. COMPARISON: None. FINDINGS: In the area of concern of the right arm, it is and lobular area of fat, which is less complex than the adjacent subcutaneous fat. This measures up to 1.1 cm in dimension. No increased hyperemia on color Doppler. No so should solid nodularity. IMPRESSION: Lobular area fat corresponds to the palpable abnormality, this may represent a 1.1 cm lipoma. Dictated by: Kong Resendiz M.D. on 04/03/2025 at 11:43 Approved by: Kong Resendiz M.D. on 04/03/2025 at 11:44
== END ==
PROVIDERS: PCP Registered Nurse Diabetes Educator; Referring Provider Registered Nurse Diabetes Educator; Visit Provider Registered Nurse Diabetes Educator
DX: R22.31 Localized swelling, mass and lump, right upper limb (principal)
CPT/HCPCS: 76882

== ENCOUNTER → 2025-05-16 12:32 | Outpatient (CLI) | payer MEDICARE, OTHER, SELFPAY ==
[2025-05-16 13:52] LABS: TSH w/ Reflex to FT4 2.68 uIU/mL (0.47-4.68)
== END ==
PROVIDERS: PCP Registered Nurse Diabetes Educator; Referring Provider Registered Nurse Diabetes Educator; Visit Provider Registered Nurse Diabetes Educator
DX: E03.9 Hypothyroidism, unspecified (principal)
CPT/HCPCS: 36415; 84443

== ENCOUNTER → 2025-06-11 12:23 | Outpatient (CLI) | payer MEDICARE, OTHER, SELFPAY | PROVIDERS: PCP Registered Nurse Diabetes Educator; Visit Provider Nurse Practitioner Family | DX: R30.0 Dysuria (principal) | CPT/HCPCS: 87077; 87086 ==